=== PATIENT | female | born 1970 | race Two or more races ===

== ENCOUNTER 2018-04-07 14:00 | Inpatient (IN) | payer OTHER ==
[~2018-04-07] VITALS: Ht 162.6 cm; Wt 68.0 kg
[2018-04-14] MEDS ORDERED: IBUPROFEN600 MG PO (06:26)
[2018-04-14] MEDS ORDERED: OXYC1TAB9 PO (06:27)
== END 2018-04-14 10:21 | disposition home or self-care (01) | DRG 743 ==
LOC: SURH 04-12 08:30 → O/R 04-12 08:42 → OB/GYN 04-12 08:42 → SURH 04-12 14:00 → OB/GYN 04-12 14:37
PROVIDERS: Obstetrics & Gynecology Gynecology
PROC: 0UT70ZZ Resection of Bilateral Fallopian Tubes, Open Approach (ICD-10-PCS; 2018-04-12)
PROC: 0UT90ZZ Resection of Uterus, Open Approach (ICD-10-PCS; principal; 2018-04-12 08:30)
DX: D25.1 Intramural leiomyoma of uterus (principal); N84.0 Polyp of corpus uteri; N72 Inflammatory disease of cervix uteri; D25.0 Submucous leiomyoma of uterus; D25.2 Subserosal leiomyoma of uterus

== ENCOUNTER 2020-07-23 07:32 | Outpatient (CLI) | payer OTHER ==
[~2020-07-23 07:32] MED LIST: IBUPROFEN600 MG PO; OXYC1TAB9 PO
== END 2020-07-23 07:38 | disposition home or self-care (01) ==
LOC: SONOGRAMA 07:32
PROVIDERS: ATTEND Pathology Anatomic Pathology & Clinical Pathology
DX: E04.2 Nontoxic multinodular goiter (principal)

== ENCOUNTER 2021-04-01 07:49 | Outpatient (CLI) | payer OTHER | END 2021-04-01 12:30 | disposition home or self-care (01) | LOC: SONOGRAMA 07:49 | PROVIDERS: ATTEND Pathology Anatomic Pathology & Clinical Pathology | DX: E04.1 Nontoxic single thyroid nodule (principal) ==